=== PATIENT | male | born 2000 | race Caucasian/White ===

== ENCOUNTER 2023-03-08 15:16 | Emergency (ER) | payer OTHER ==
[~2023-03-08] VITALS: Ht 172.7 cm; Wt 79.2 kg
[~2023-03-08 15:16] MED LIST: ACULAR1 DROP OD; ALBUTEROL SULF8.5 GM INH; BACTRIM DS TAB1 EACH PO; CLONIDINE HCL0.1 MG PO; DRIZALMA SPRINK60 MG PO; IBUPROFEN400 MG PO; INTUNIV2 MG PO; OSTERA TABLET1 EACH PO; PROZAC10 MG PO; STRATTERA10 MG PO; STRATTERA40 MG PO
[2023-03-08] MEDS ORDERED: TRAZODONE HCL50 MG PO (15:32)
[2023-03-08 16:22] LABS: INFLUENZA B NAA NEGATIVE (NEGATIVE); RESPIRATORY SYNCYTIAL VIR NAA NEGATIVE (NEGATIVE)
[2023-03-08] MEDS ORDERED: PREDNISONE20 MG PO (16:49)
[2023-03-08] MEDS ORDERED: VENTOLIN HFA18 GM INH (16:49)
[2023-03-08 16:55] VITALS: BP 116/59
== END 2023-03-08 16:55 | disposition home or self-care (01) ==
LOC: ED 15:16
PROVIDERS: Emergency Medicine
DX: U07.1 COVID-19 (principal); J40 Bronchitis, not specified as acute or chronic; Z88.0 Allergy status to penicillin; Z88.8 Allergy status to other drugs, medicaments and biological substances
CPT/HCPCS: 87502; 99283; J7512; U0002